=== PATIENT | female | born 1995 | race African-American/Black ===

== ENCOUNTER 2016-03-28 18:55 | Emergency (ER) | payer OTHER ==
[~2016-03-28] VITALS: Ht 165.1 cm; Wt 77.0 kg
[~2016-03-28 18:55] MED LIST: METR-1 PO; PREN0.01 PO
[2016-03-28 18:57] VITALS: BP 122/76; PULSE 98; RESP 15; TEMP 98; O2SAT 98
== END 2016-03-28 21:11 | disposition left against medical advice (07) ==
LOC: NED 18:55
DX: Z53.21 Procedure and treatment not carried out due to patient leaving prior to being seen by health care provider (principal)
CPT/HCPCS: 99281

== ENCOUNTER 2017-01-15 23:14 | Emergency (ER) | payer OTHER ==
[~2017-01-15] VITALS: Ht 167.6 cm; Wt 80.0 kg
[2017-01-15 23:16] VITALS: BP 133/79; PULSE 91; RESP 16; TEMP 97.7; O2SAT 98
[2017-01-16] MEDS ORDERED: predniSONE 20 MG TAB PO ONE
[2017-01-16] MEDS: RESP: ALBUTEROL 2.5 MG/3 ML NEB (SCH) INH (00:20)
[2017-01-16 00:23] VITALS: O2SAT 98
[2017-01-16] MEDS ORDERED: VENTAER INH (00:29)
[2017-01-16] MEDS ORDERED: MEDR4PAK PO (00:29)
[2017-01-16] MEDS ORDERED: ZITHTAB PO (00:29)
--- NOTE | 2017-01-16 00:29 | RADRPT ---
EXAM DATE/TIME: 01/16/2017 00:07 [place] COMPARISON: No previous studies available for comparison. INDICATIONS : Fever, cough. MEDICAL HISTORY : None. SURGICAL HISTORY : None. ENCOUNTER: Initial ACUITY: 2 days PAIN SCORE: 0/10 LOCATION: Bilateral chest FINDINGS: PA and lateral views of the chest demonstrate the lungs to be symmetrically aerated without evidence of mass, infiltrate or effusion. The cardiomediastinal contours are unremarkable. Osseous structure s are intact. CONCLUSION: No acute disease. Joo Wilde MD on January 16, 2017 at 0:27 Board Certified Radiologist. This report was verified electronically.
--- NOTE | 2017-01-16 00:29 | PD ---
HPI Chief Complaint: Cold / Flu Symptoms Time Seen by Provider: 23:55 Travel History International Travel<30 days: No Contact w/Intl Traveler<30days: No Traveled to known affect area: No History of Present Illness HPI C/O COUGH, RUNNY NOSE, PROD COUGH OF YELLOW/GREEN SPUTUM, SOME WHEEZING, ONGOING FOR 2 DAYS, NOT IMPROVING, DENIES ANY ALLEVIATING/AGGRAVATING FACTORS. DENIES FEVER/N/V/D/ABDPAIN/ PFSH Past Medical History Medical History: Denies Significant Hx Asthma: Yes Diminished Hearing: No Headaches: Yes Respiratory: Yes (ASTHMA) Immunizations Current: Yes Tetanus Vaccination: < 5 Years Influenza Vaccination: No ?: Unknown LMP: 12/19/16 Past Surgical History Surgical History: No Previous Surgery Social History Alcohol Use: Yes (OCCASIONALLY) Tobacco Use: No Substance Use: No Allergies-Medications (Allergen,Severity, Reaction): Coded Allergies: shellfish derived (Unverified Adverse Reaction, Intermediate, DIARRHEA, ) Reported Meds & Prescriptions Reported Meds & Active Scripts Active Albuterol Neb (Albuterol Sulfate) 2.5 Mg/3 Ml Neb 2.5 Mg NEB Q4HR NEB While awake Ventolin Hfa 18 GM Inh (Albuterol Sulfate) 90 Mcg/Act Aer 2 Puff INH Q4-6H PRN Zithromax Z-Addison (Azithromycin) 250 Mg Dspk 250 Mg PO DIRECTED 500 MG (2 tabs) day 1, then 1 tab days 2-5. Medrol Dosepak (Methylprednisolone) 4 Mg Dspk 4 Mg PO DIRECTED Per Pharmacist direction Review of Systems Except as stated in HPI: all other systems reviewed are Neg General / Constitutional: No: Fever Eyes: No: Visual changes HENT: No: Headaches Cardiovascular: No: Chest Pain or Discomfort Respiratory: Positive: Cough, Wheezing Gastrointestinal: No: Abdominal Pain Genitourinary: No: Dysuria Musculoskeletal: No: Pain Skin: No Rash Neurologic: No: Weakness Psychiatric: No: Depression Endocrine: No: Polydipsia Hematologic/Lymphatic: No: Easy Bruising Physical Exam Narrative GENERAL: SKIN: Warm and dry. HEAD: Atraumatic. Normocephalic. EYES: Pupils equal and round. No scleral icterus. No injection or drainage. ENT: No nasal bleeding or discharge. Mucous membranes pink and moist. NECK: Trachea midline. No JVD. CARDIOVASCULAR: Regular rate and rhythm. RESPIRATORY: No accessory muscle use. Clear to auscultation. Breath sounds equal bilaterally. WHEEZING GASTROINTESTINAL: Abdomen soft, non-tender, nondistended. MUSCULOSKELETAL: Extremities without clubbing, cyanosis, or edema. No obvious deformities. NEUROLOGICAL: Awake and alert. No obvious cranial nerve deficits. Motor grossly within normal limits. Five out of 5 muscle strength in the arms and legs. Normal speech. PSYCHIATRIC: Appropriate mood and affect; insight and judgment normal. Data Data Last Documented VS Vital Signs Date Time Temp Pulse Resp B/P (MAP) Pulse Ox O2 Delivery O2 Flow Rate FiO2 01/16/17 01:26 01/16/17 00:48 64 16 98 Room Air 01/16/17 00:23 21 01/15/17 23:16 97.7 Orders Orders Ed Urine Pregnancytest Poc (01/15/17 23:55) Chest, Pa & Lat (01/15/17 23:55) Prednisone (Deltasone) (01/16/17 00:00) Albuterol Neb (Albuterol Neb) (01/16/17 00:00) Ed Discharge Order (01/16/17 00:44) MDM Medical Decision Making Medical Screen Exam Complete: Yes Emergency Medical Condition: Yes Medical Record Reviewed: Yes Differential Diagnosis BRONCHITIS V ASTHMA V PNA Narrative Course CXR NEG FOR PNA,....NEG PREG. PATIENT WILL BE D/C WITH NEBS/STEROID AND ABX Diagnosis Primary Impression: ACUTE BRONCHOSPASM BRONCHITIS Patient Instructions: General Instructions Scripts Albuterol Neb (Albuterol Neb) 2.5 Mg/3 Ml Neb 2.5 MG NEB Q4HR NEB for Breathing Treatment, #60 NEBULE 0 Refills While awake Prov: Ap George MD 01/16/17 Albuterol 18 GM Inh (Ventolin Hfa 18 GM Inh) 90 Mcg/Act Aer 2 PUFF INH Q4-6H Y for SHORTNESS OF BREATH, #1 INHALER 0 Refills Prov: Ap George MD 01/16/17 Azithromycin (Zithromax Z-Addison) 250 Mg Dspk 250 MG PO DIRECTED for Infection, #1 DSPK 0 Refills 500 MG (2 tabs) day 1, then 1 tab days 2-5. Prov: Ap George MD 01/16/17 Methylprednisolone Dosepak (Medrol Dosepak) 4 Mg Dspk 4 MG PO DIRECTED, #1 DSPK 0 Refills Per Pharmacist direction Prov: Ap George MD 01/16/17 Disposition: 01 DISCHARGE HOME Condition: Stable Ap George MD Jan 16, 2017 00:29
[2017-01-16 00:48] VITALS: BP 114/64; PULSE 64; RESP 16; O2SAT 98
[2017-01-16] MEDS ORDERED: ALBU0.08 NEB (01:00)
== END 2017-01-16 01:27 | disposition home or self-care (01) ==
LOC: NEPD 23:14
DX: J20.9 Acute bronchitis, unspecified (principal)
CPT/HCPCS: 71020; 84703; 94640; 94664; 99284; J7512; J7613

== ENCOUNTER 2017-01-29 05:48 | Emergency (ER) | payer OTHER ==
[~2017-01-29] VITALS: Ht 167.6 cm; Wt 74.0 kg
[~2017-01-29 05:48] MED LIST changes: +ALBU0.08 NEB; +MEDR4PAK PO; -METR-1 PO; -PREN0.01 PO; +VENTAER INH; +ZITHTAB PO
[2017-01-29 05:49] VITALS: BP 133/75; PULSE 82; RESP 16; TEMP 97.8; O2SAT 100
--- NOTE | 2017-01-29 06:08 | PD ---
HPI Chief Complaint: ENT Complaint Time Seen by Provider: 06:03 Travel History International Travel<30 days: No Contact w/Intl Traveler<30days: No Traveled to known affect area: No History of Present Illness HPI Patient comes in complaining of sore throat ongoing for 2 months. Patient states she has been on multiple antibiotics for strep , but has not been tested. Patient states that she was recommended to see a specialist to have her tonsils removed but she has not done this. Patient describes pain as a scratchy burning pain in her throat that is constant. Denies any radiation of the pain. Patient states she's been taking NyQuil to help her sleep at night. Pain is worse with swallowing. Denies any known fevers, chest pain, shortness of breath, abdominal pain, nausea, vomiting, neck pain, weight loss, or headaches. PFSH Past Medical History Asthma: Yes Diabetes: No Patient Takes Glucophage: No Diminished Hearing: No Headaches: Yes Respiratory: Yes (ASTHMA) Immunizations Current: Yes Tetanus Vaccination: Unknown Influenza Vaccination: Yes ?: Unknown LMP: 12/19/16 : 1 : 1 Past Surgical History Surgical History: No Previous Surgery Other Surgery: Yes (I&D) Social History Alcohol Use: Yes (OCCASIONALLY) Tobacco Use: No Substance Use: No Allergies-Medications (Allergen,Severity, Reaction): Coded Allergies: shellfish derived (Unverified Adverse Reaction, Intermediate, DIARRHEA, ) Reported Meds & Prescriptions Reported Meds & Active Scripts Active Albuterol Neb (Albuterol Sulfate) 2.5 Mg/3 Ml Neb 2.5 Mg NEB Q4HR NEB While awake Ventolin Hfa 18 GM Inh (Albuterol Sulfate) 90 Mcg/Act Aer 2 Puff INH Q4-6H PRN Review of Systems Except as stated in HPI: all other systems reviewed are Neg Physical Exam Narrative GENERAL: Well-developed, overly nourished, in no acute distress, and non-ill appearing. SKIN: Focused skin assessment warm and dry. HEAD: Atraumatic. Normocephalic. EYES: Pupils equal and round. EOMI. No scleral icterus. No injection or drainage. ENT: No nasal bleeding or discharge. Mucous membranes pink and moist. Tympanic membranes pearly chambers bilaterally. Posterior pharynx erythematous without exudate. Uvula is midline. Tonsils are pink and nonedematous. Swallowing own saliva. NECK: Trachea midline. No cervical lymphadenopathy. Supple. No nuclear rigidity. RESPIRATORY: No accessory muscle use. No respiratory distress. Patient speaking in full sentences without difficulty. MUSCULOSKELETAL: No obvious deformities. No clubbing. No cyanosis. No edema. Full range of motion. NEUROLOGICAL: Awake and alert. No obvious cranial nerve deficits. Motor grossly within normal limits. Normal speech. PSYCHIATRIC: Appropriate mood and affect; insight and judgment normal. Data Data Last Documented VS Vital Signs Date Time Temp Pulse Resp B/P (MAP) Pulse Ox O2 Delivery O2 Flow Rate FiO2 01/29/17 08:16 01/29/17 05:49 97.8 82 16 100 Room Air Orders Orders Group A Rapid Strep Screen (01/29/17 06:03) Monoscreen (01/29/17 06:03) Strep Culture (Group A) (01/29/17 06:20) Ed Discharge Order (01/29/17 07:35) Labs Laboratory Tests Test 01/29/17 06:20 Monoscreen NEG MDM Medical Decision Making Medical Screen Exam Complete: Yes Emergency Medical Condition: Yes Differential Diagnosis Viral pharyngitis, strep pharyngitis, tonsillitis, mono, chronic pharyngitis Narrative Course Patient was seen and examined. Initial laboratory tests were ordered. Patient was signed out to Summer Castillo PA-C at the end of my shift. Please see her documentation for final diagnosis and disposition. Camilo Devries Jan 29, 2017 06:08
--- NOTE | 2017-01-29 07:06 | PD ---
Physical Exam Date Seen by Provider: Jan 29, 2017 Narrative 21-year-old female presents emergency department with a recurrent sore throat. Strep and mono negative. Patient advised follow-up with ear nose and throat as soon as possible for further treatment and evaluation. Data Data Last Documented VS Vital Signs Date Time Temp Pulse Resp B/P (MAP) Pulse Ox O2 Delivery O2 Flow Rate FiO2 01/29/17 05:49 97.8 82 16 133/75 (94) 100 Room Air Orders Orders Group A Rapid Strep Screen (01/29/17 06:03) Monoscreen (01/29/17 06:03) Strep Culture (Group A) (01/29/17 06:20) Ed Discharge Order (01/29/17 07:35) Labs Laboratory Tests Test 01/29/17 06:20 Monoscreen NEG MDM Supervised Visit with VENITA: Yes Diagnosis Primary Impression: Pharyngitis Qualified Codes: J02.9 - Acute pharyngitis, unspecified Referrals: [facility] Specialist Additional Instruction: Follow-up with her primary care physician for a referral to ear nose and throat as soon as possible. If your symptoms persist or worsen return to the emergency department Continue nutritious diet and plenty of fluid intake. Disposition: 01 DISCHARGE HOME Condition: Stable Summer Castillo Jan 29, 2017 07:06
== END 2017-01-29 08:24 | disposition home or self-care (01) ==
LOC: NEPD 05:48
DX: J02.9 Acute pharyngitis, unspecified (principal); J45.909 Unspecified asthma, uncomplicated; Z79.51 Long term (current) use of inhaled steroids
CPT/HCPCS: 86308; 87081; 87880; 99283